=== PATIENT | female | born 1940 | race Caucasian/White ===

== ENCOUNTER 2019-04-04 05:58 | Outpatient (RCR) | payer MEDICARE, MEDICAID, SELFPAY | END 2019-04-24 00:01 | LOC: ONCRAD 05:58 | PROVIDERS: Family Provider Internal Medicine; Visit Provider Radiology Radiation Oncology | DX: Z08 Encounter for follow-up examination after completed treatment for malignant neoplasm (principal); C34.32 Malignant neoplasm of lower lobe, left bronchus or lung; I71.4 Abdominal aortic aneurysm, without rupture; I67.1 Cerebral aneurysm, nonruptured; J44.9 Chronic obstructive pulmonary disease, unspecified; I25.10 Atherosclerotic heart disease of native coronary artery without angina pectoris; F17.210 Nicotine dependence, cigarettes, uncomplicated; R91.8 Other nonspecific abnormal finding of lung field; Z79.891 Long term (current) use of opiate analgesic; Z92.3 Personal history of irradiation; Z90.2 Acquired absence of lung [part of] | CPT/HCPCS: 99213 ==

== ENCOUNTER 2019-07-05 09:10 | Outpatient (CLI) | payer MEDICARE, MEDICAID, SELFPAY ==
--- NOTE | 2019-07-05 09:27 | CT_ITS ---
WS: [id number] CT CHEST WITHOUT INTRAVENOUS CONTRAST HISTORY: LUNG CANCER TECHNIQUE: Contiguous 5 mm axial imaging performed on the thorax. Coronal and sagittal reformats are submitted. All CT scans at [facility] use at least one of these dose optimization techniq ues: automated exposure control; mA and/or kV adjustment per patient size (includes targeted exams wh ere dose is matched to clinical indication); or iterative reconstruction. CONTRAST: None DLP: 831.44 mGycm COMPARISON: 01/08/2019, 09/25/2018 and 07/21/2017, PET/CT 03/24/2019. Lungs and central airway: Marked emphysema. Postsurgical changes in the RIGHT lower lobe. There are d ystrophic calcifications in the superior segment of the RIGHT lower lobe with thickening along the ma marco antonio fissure. Increasing pleural thickening and nodularity at the surgical site. Previously described nodule adjacent to the calcification at the surgical site is no longer identified. Progression of bro nchial wall thickening and adjacent interstitial lung disease may be postradiation treatment. Mild th ickening and nodularity along the superior RIGHT major fissure. New 2 mm noncalcified nodule posterior LEFT upper lobe, image 14 of series 3. Lobulated nodule measur ing 6 mm in the lingula similar size to the prior study. Heart and pericardium: Cardiac chambers are slightly enlarged. Increased pericardial fat. Moderate ca lcification in the [place] coronary arteries. Mediastinum and harrison: No adenopathy identified. Vessels: Extensive atherosclerosis aorta with no dilatation. Enlarged pulmonary artery measuring 3.1 cm diameter. Moderate coronary artery atherosclerosis. Chest wall and lower neck: No soft tissue masses. Upper abdomen: No adrenal mass. Perinephric stranding and incompletely visualized stable nodule LEFT kidney measures 1.6 cm. Probably a cyst. Osseous structures: Osteopenia and increased thoracic kyphosis and scoliosis. No osteoblastic or oste olytic bone disease. CT/CT chest wo con [id number] IMPRESSION: 1. Increasing pleural thickening at the surgical site superior segment RIGHT l ower lobe adjacent to the dystrophic calcifications along with thickening along the superior major fissure. Previously described nodule is no longer present a t the surgical site. The changes all may be post radiation induced lung disease . PET/CT from 03/24/2019 indicates the changes may be postinflammatory or postr adiation treatment. Recommend continued close CT follow-up. 2. Chronic emphysema. 3. Stable LEFT upper lobe pulmonary nodules which were negative on PET/CT. 4. No adenopathy. 5. Extensive atherosclerosis aorta and coronary arteries. 6. Pulmonary hypertension.
== END 2019-07-05 09:11 | disposition home or self-care (01) ==
LOC: ONCMED 09:18
PROVIDERS: Family Provider Internal Medicine; PCP Internal Medicine; Visit Provider Radiology Radiation Oncology
DX: Z85.118 Personal history of other malignant neoplasm of bronchus and lung (principal); J43.9 Emphysema, unspecified; I25.10 Atherosclerotic heart disease of native coronary artery without angina pectoris; I27.20 Pulmonary hypertension, unspecified
CPT/HCPCS: 71250

== ENCOUNTER 2019-07-06 10:04 | Outpatient (CLI) | payer MEDICARE, MEDICAID, SELFPAY ==
--- NOTE | 2019-07-06 11:44 | ONCRAD EPV_ITS ---
Radiation Oncology Established Patient Visit Patient: Tala MR#: [id number] : 1940> Age: 78> Sex: Female> Dictated by: Dr. Len Kaur Date of Service: 07/06/2019 Referring Physician(s) : Lois Montoya M.D. Diagnosis: C34.32 - Malignant neoplasm of lower lobe, left bronchus or lung, Diagnosed 04/06/2017 (Active) Stage IA, T1a, N0, M0 Radiotherapy to Date: Chief Complaint / History of Present Illness: Moderate shortness of breath, unchanged. Current Medications: Allopurinol, clopidogrel Bisulfate, crestor, fenofibrate, hydroCHLOROthiazide, hydrocodone-Acetaminophen, isosorbide Dinitrate, metoprolol Succinate ER, nexIUM, tolterodine Tartrate ER. Review of Systems. Moderate dyspnea, unchanged. No headaches. No systemic symptoms. No bony pain. Vital Signs: Performed on 07/06/2019 9:49 AM BMI - 29.255 kg/m2 (high), Height - 65.00 in, Weight - 175.8 lbs, Temperature - 98.2 f, Pulse - 74, Respiration - 24, O2 Sat - 96 %, Pain - 0 and BP - 155/ 65 mm(hg)(high/). Physical Exam: General: Elderly patient, general condition consistent with her age. Alert and oriented x 3. No acute distress. HEENT: Normocephalic, atraumatic. Extraocular Movements Intact: Pupils Equal, Round, Reactive to Light and Accommodation: Sclerae anicteric. Oral cavity is clear without lesions, masses or ulcers. NECK: Supple without supraclavicular or jugular lymphadenopathy. LUNGS: Clear to auscultation bilaterally without rales, rhonchi or wheeze. MUSCULOSKELETAL: No tenderness or percussion pain over the axial skeleton, scapulae or pelvis. ABDOMEN: Soft, nontender, nondistended without masses or organomegaly EXTREMITIES: No peripheral edema is identified. Limited motor and sensory examination are grossly intact and symmetric bilaterally. NEUROLOGIC: Cranial nerves II ???XII are grossly intact. Normal sensation, strength 5/5 in all extremities, normal gait, no ataxia. Performance Status: 2 - Ambulatory/capable of all self-care, unable to perform any work activities. Up and about more than 50% of waking hours. (ECOG) Lab: None pending. Pathology: Primary, c34.32 - malignant neoplasm of lower lobe, left bronchus or lung, Diagnosed 04/06/2017 (active) stage ia, t1a, n0, m0. Imaging: CT scan of the chest on 07-05-19 disclosed moderate emphysema and post surgical changes in RLL. New 2 mm noncalcified nodule in posterior LLL. Lobulated 6 mm lobulated nodule in the lingual, similar size to prior study. Patient had PET scan in February 2019 which showed a 6 mm nodule in lingual/ left lung. Impression: Stable. To return in 4 months. She will be scheduled for follow up CT scan of chest before her visit to Radiation Oncology. Signed by: 07/06/2019 11:43:06 AM <<Signature on File>> Time spent with patient: CPT Code: CPT Code:
== END 2019-07-06 10:05 | disposition home or self-care (01) ==
LOC: ONCMED 10:08
PROVIDERS: Family Provider Internal Medicine; PCP Internal Medicine
DX: C34.32 Malignant neoplasm of lower lobe, left bronchus or lung (principal); R91.8 Other nonspecific abnormal finding of lung field; J43.9 Emphysema, unspecified; Z79.02 Long term (current) use of antithrombotics/antiplatelets
CPT/HCPCS: 99213

== ENCOUNTER 2019-11-07 10:22 | Outpatient (CLI) | payer MEDICARE, MEDICAID, SELFPAY ==
--- NOTE | 2019-11-07 10:45 | CT_ITS ---
WS: [id number] CT scan of the chest without IV contrast, additional two-dimensional coronal and sagittal reconstruct ion was performed. 11/07/2019 Clinical Data: LUNG CANCER Comparison: CT chest, 07/05/2019. DLP: 717.[address] scans at [facility] use at least one of these dose optimization techniques: automat ed exposure control; mA and/or kV adjustment per patient size (includes targeted exams where dose is matched to clinical indication); or iterative reconstruction. Findings: The posttreatment changes in the superior segment of the right lower lobe remain the same with scarri ng, pleural thickening and embedded calcifications. No new masses are seen. There is no change in the lingular nodule of 0.6 cm seen best on axial image 34 of 61. The previously noted left upper lobe no dule is not present. The heart size is normal with no pericardial effusion. The pulmonary artery stil l measures 3.1 cm. There is calcification of the wall of the thoracic aorta. There is coronary arter y calcification and calcification in the mitral valve. There is no axillary or significant mediastina l adenopathy. The trachea bifurcates normally into the bronchi. Thyroid gland is not remarkable. The upper abdomen shows no change from before. The bones of the thorax demonstrate no metastatic lesi ons. CT/CT chest wo con [id number] Impression: 1. No change in scarring and pleural thickening in the superior segment of the right lower lobe. 2. No change in slight pulmonary artery enlargement, lingular nodule, and ather osclerotic calcifications.
[2019-11-07 11:13] LABS: Blood Urea Nitrogen 18 mg/dL (8-23)
== END 2019-11-07 10:23 | disposition home or self-care (01) ==
PROVIDERS: Radiology Radiation Oncology; Family Provider Internal Medicine; PCP Internal Medicine; Visit Provider Radiology Radiation Oncology
DX: C34.90 Malignant neoplasm of unspecified part of unspecified bronchus or lung (principal)
CPT/HCPCS: 71250; 82565; 84520

== ENCOUNTER 2019-11-12 10:34 | Outpatient (CLI) | payer MEDICARE, MEDICAID, SELFPAY ==
--- NOTE | 2019-11-12 12:25 | ONCRAD EPV_ITS ---
Radiation Oncology Established Patient Visit Patient: Tala MR#: [id number] : 1940 Age: 79 Sex: Female Dictated by: Dr. Altaf Daugherty Date of Service: 11/12/2019 Referring Physician(s) : Lois Montoya Diagnosis: C34.32 - Malignant neoplasm of lower lobe, left bronchus or lung, Diagnosed 04/06/2017 (Active) Stage IA, T1a, N0, M0 Radiotherapy to Date: Course: C1 Treatment Site: SBRT LT LUNG [id number], Ref. ID: [id number], Energy: 6X, Dose/Fx (cGy): 1,000, #Fx: 5 / 5, Dose Correction (cGy): 0, Total Dose (cGy): 5,000, Start Date: 05/30/2017, End Date: 06/08/2017, Elapsed Days: 9 Treatment Site: RT Lung SBRT, Ref. ID: [id number], Energy: 6X, Dose/Fx (cGy): 1,000, #Fx: 5 / 5, Dose Correction (cGy): 0, Total Dose (cGy): 5,000, Start Date: 11/13/2018, End Date: 11/22/2018, Elapsed Days: 9 Chief Complaint / History of Present Illness: The patient is a 79-year-old female with several non-small cell lung carcinomas. Per medical records review, she underwent a wedge resection in 09/2015 which was positive for adenocarcinoma, and SBRT to the left and right lung in 05/2017 and 10/2018, respectively. In follow-up today, the patient reports no progressive shortness of breath, and no chest wall pain. She reports occasional blood flecked sputum and she continues to smoke 1 pack/day. Smoking cessation counseling was given today, yet the patient declined. She reports that it is the one thing that she enjoys. Most recent CT of the chest (11/12/2019) revealed no evidence of disease recurrence or metastasis. Current Medications: Allopurinol, clopidogrel Bisulfate, crestor, fenofibrate, hydroCHLOROthiazide, hydrocodone-Acetaminophen, isosorbide Dinitrate, metoprolol Succinate ER, nexIUM, tolterodine Tartrate ER. Allergies: Ultram. Current Complaints / Review of Systems: Constitutional - Complains of lack of appetite. Complains of moderate fatigue. Denies fever, night sweats and change in weight. Eyes - Complains of blurred vision occasionally with reading something. Denies double vision. ENMT - Complains of problems with hearing in both ears. Complains of altered taste. Denies dysphagia, ear pain, mouth dryness, stomatitis and tinnitus. Integumentary - Denies rash. Breasts - Denies pain. Cardiovascular - Complains of chest pain occasionally and edema in both feet and ankle. Respiratory - Complains of a moderate cough. Complains of dyspnea associated with rest or normal activity. Complains of a scant amount of hemoptysis. Complains of wheezing. Gastrointestinal - Complains of heartburn / dyspepsia occasionally. Denies constipation, diarrhea, nausea and vomiting. Genitourinary (F) - Complains of nocturia gets up about 1 time per night. Denies dysuria, frequency and urgency. Musculoskeletal - Complains of joint pain in the back. Complains of generalized muscle weakness. Denies bone pain. Neurologic - Complains of intermittent dizziness. Denies headaches. Endocrine - Denies diabetes and thyroid disease. Hematologic/Lymphatic - Denies tender or enlarged lymph nodes.. Vital Signs: Performed on 11/12/2019 11:37 AM BMI - 28.822 kg/m2 (high), Height - 65.00 in, Weight - 173.2 lbs, Temperature - 98.0 f, Pulse - 70, Respiration - 24, O2 Sat - 95 % (low), Pain - 7 and BP - 137/ 76 mm(hg). Physical Exam: General: Alert and oriented x 3. No acute distress. HEENT: Normocephalic, atraumatic. Extraocular Movements Intact: Pupils Equal, Round, Reactive to Light and Accommodation: Sclerae anicteric. Oral cavity is clear without lesions, masses or ulcers. NECK: Trachea is midline. LUNGS: Clear to auscultation bilaterally without rales, rhonchi or wheeze. HEART: Regular rate and rhythm, normal S1 and S2 without murmur, gallop or rub. MUSCULOSKELETAL: No tenderness or percussion pain over the axial skeleton, scapulae or pelvis. EXTREMITIES: No peripheral edema is identified. Limited motor and sensory examination are grossly intact and symmetric bilaterally. NEUROLOGIC: Cranial nerves II ???XII are grossly intact. Performance Status: 2 - Ambulatory/capable of all self-care, unable to perform any work activities. Up and about more than 50% of waking hours. (ECOG) Lab: None pending. Pathology: Primary, c34.32 - malignant neoplasm of lower lobe, left bronchus or lung, Diagnosed 04/06/2017 (active) stage ia, t1a, n0, m0. Imaging: See HPI Impression: The patient is a 79-year-old female with several non-small cell lung carcinomas. Per medical records review, she underwent a wedge resection in 09/2015 which was positive for adenocarcinoma, and SBRT to the left and right lung in 05/2017 and 10/2018, respectively to a total dose of 50 Gy in 5 fractions. In follow-up today, she has no clinical or radiographic concern for disease recurrence. I plan to follow-up in 6 months with a repeat CT of the chest. Signed by: 11/12/2019 12:22:48 PM <<Signature on File>> CPT Code: CPT Code:
== END 2019-11-12 10:35 | disposition home or self-care (01) ==
LOC: ONCMED 10:45
PROVIDERS: PCP Internal Medicine; Visit Provider Radiology Radiation Oncology
DX: Z08 Encounter for follow-up examination after completed treatment for malignant neoplasm (principal); Z85.118 Personal history of other malignant neoplasm of bronchus and lung; Z90.2 Acquired absence of lung [part of]; Z92.3 Personal history of irradiation
CPT/HCPCS: 99213; G0463

== ENCOUNTER → 2020-01-22 14:08 | Outpatient (BNVA) | payer MEDICARE, MEDICAID, SELFPAY | PROVIDERS: PCP Internal Medicine; Visit Provider Nurse Practitioner | DX: N18.9 Chronic kidney disease, unspecified (principal); I25.10 Atherosclerotic heart disease of native coronary artery without angina pectoris; J44.9 Chronic obstructive pulmonary disease, unspecified | CPT/HCPCS: 80053; 85025 ==

== ENCOUNTER → 2020-02-14 09:35 | Outpatient (BNVA) | payer MEDICARE, MEDICAID, SELFPAY | PROVIDERS: PCP Internal Medicine; Visit Provider Nurse Practitioner | DX: N18.9 Chronic kidney disease, unspecified (principal); J44.9 Chronic obstructive pulmonary disease, unspecified | CPT/HCPCS: 80048 ==

== ENCOUNTER 2020-02-22 09:11 | Outpatient (CLI) | payer MEDICARE, MEDICAID, SELFPAY ==
--- NOTE | 2020-02-22 11:30 | CT_ITS ---
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 CT scan of the chest abdomen and pelvis is performed in the axial plane with sagittal and coronal ref ormatted images. CT scan of the chest. Comparison 11/07/2019. A 6 mm noncalcified nodule again noted in the lingula shows no change. There is scarring in the calci fication with associated pleural thickening in the superior segment of the right lower lobe unchanged . Moderately advanced emphysematous changes are noted. There are no new nodules or masses. The lungs are completely expanded. The airway is patent. The thoracic aorta is normal in caliber. Triple vessel coronary artery calcifications. No mediastinal or hilar lymphadenopathy. Prominent thyroid lobes. No destructive bone lesions are chest wall defects. CT/CT chest abd pel wo con IMPRESSION: 1. Stable-appearing 6 mm nodule in the lingula. No new nodules or masses noted in the chest. No lymphadenopathy. 2. Pulmonary parenchymal scarring and pleural scarring noted in the region of t he superior segment of the right lower lobe stable in appearance. 3. Additional nonacute findings as detailed above. CT scan of the abdomen and pelvis. The liver, stomach, spleen and pancreas appear normal. The gallbladder is not i dentified and is probably surgically absent. The abdominal aorta is normal in c aliber. There are 2 cysts in the left kidney both measuring the range of 1.5 cm in greatest diameter each. Normal right kidney. Unremarkable adrenal glands. N o free air. No lymphadenopathy. Small bowel loops are not dilated. No significa nt large bowel abnormality is demonstrated. Intact urinary bladder. No lymphade nopathy or free air. 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 No destructive bone lesions are seen. IMPRESSION: 1. No mass, lymphadenopathy or acute finding. 2. Additional minor findings as above.
== END 2020-02-22 09:12 | disposition home or self-care (01) ==
LOC: RADWPI 09:16
PROVIDERS: PCP Nurse Practitioner; Visit Provider Nurse Practitioner
DX: R10.9 Unspecified abdominal pain (principal); F17.200 Nicotine dependence, unspecified, uncomplicated; R91.1 Solitary pulmonary nodule
CPT/HCPCS: 71250; 74176

== ENCOUNTER 2020-06-18 06:00 | Outpatient (RCR) | payer MEDICARE, MEDICAID, SELFPAY | END 2020-06-22 23:59 | disposition home or self-care (01) | LOC: APT 06:00 | PROVIDERS: PCP Nurse Practitioner; Referring Provider Nurse Practitioner; Visit Provider Nurse Practitioner | DX: Z74.09 Other reduced mobility (principal) | CPT/HCPCS: 97110; 97163 ==

== ENCOUNTER 2020-06-23 06:00 | Outpatient (RCR) | payer MEDICARE, MEDICAID, SELFPAY | END 2020-07-23 23:59 | disposition home or self-care (01) | LOC: APT 06:00 | PROVIDERS: PCP Nurse Practitioner; Referring Provider Nurse Practitioner; Visit Provider Nurse Practitioner | DX: Z74.09 Other reduced mobility (principal) | CPT/HCPCS: 97110; 97530 ==

== ENCOUNTER 2020-07-24 06:00 | Outpatient (RCR) | payer MEDICARE, MEDICAID, SELFPAY | END 2020-08-22 23:59 | disposition home or self-care (01) | LOC: APT 06:00 | PROVIDERS: PCP Nurse Practitioner; Referring Provider Nurse Practitioner; Visit Provider Nurse Practitioner | DX: Z74.09 Other reduced mobility (principal) | CPT/HCPCS: 97110 ==

== ENCOUNTER → 2020-08-28 15:11 | Outpatient (BNVA) | payer MEDICARE, MEDICAID, SELFPAY | PROVIDERS: PCP Nurse Practitioner; Visit Provider Nurse Practitioner | DX: E55.9 Vitamin D deficiency, unspecified (principal); I10 Essential (primary) hypertension; I25.10 Atherosclerotic heart disease of native coronary artery without angina pectoris; K58.1 Irritable bowel syndrome with constipation; K21.9 Gastro-esophageal reflux disease without esophagitis; R35.0 Frequency of micturition; J44.9 Chronic obstructive pulmonary disease, unspecified | CPT/HCPCS: 81000 ==

== ENCOUNTER 2020-10-21 08:20 | Outpatient (CLI) | payer MEDICARE, MEDICAID, SELFPAY ==
--- NOTE | 2020-10-21 08:41 | CT_ITS ---
WS: [id number] CT CHEST WITHOUT INTRAVENOUS CONTRAST HISTORY: MALIGNANT NEOPLASM OF UNSPECIFIED PART OF LUNG/BRONCHUS TECHNIQUE: Contiguous 5 mm axial imaging performed on the thorax. Coronal and sagittal reformats are submitted. All CT scans at [facility] use at least one of these dose optimization techniq ues: automated exposure control; mA and/or kV adjustment per patient size (includes targeted exams wh ere dose is matched to clinical indication); or iterative reconstruction. CONTRAST: None DLP: 614.27 mGycm COMPARISON: 02/22/2020, 01/08/2019 Lungs and central airway: Slight volume loss and postoperative changes in the RIGHT upper lobe. Sligh t increase in size of the lingular nodule measures 8 mm. There is an additional 2 mm nodule in the an terior LEFT upper lobe which is stable over intermediate manager. RIGHT apical pleural thickening and scarring w ith volume loss superimposed on a background of emphysema. There is been a slight increase in the ian unt of pleural thickening along the superior RIGHT major fissure since 01/08/2019. There is also incre asing atelectasis extending into the superior segment of the RIGHT lower lobe. Pleura: Pleural thickening has slightly progressed in the RIGHT thorax. Heart and pericardium: Moderate enlargement the heart. Increased pericardial fat. Moderate coronary a rtery calcifications. Mediastinum and harrison: No mediastinum or hilar adenopathy. Vessels: Moderate to severe atherosclerosis thoracic aorta. No aneurysm. Pulmonary artery size is enl arged. Chest wall and lower neck: Substernal thyroid with nodules in the substernal LEFT thyroid. No interva l change. Upper abdomen: Mild bilateral perinephric stranding. Partially visualized exophytic low-attenuation m ass from the LEFT kidney. No adrenal mass. Visualized liver is negative. Osseous structures: Osteopenia. No osteoblastic or osteolytic disease. CT/CT chest wo con [id number] IMPRESSION: 1. Postsurgical changes RIGHT apex. 2. There is been a slight increase in amount pleural thickening along the supe rior RIGHT major fissure and increasing partial atelectasis superior segment RI GHT lower lobe since the prior study. Due to these very subtle changes suggest short-term follow-up chest CT in 3 months. 3. Chronic emphysema. 4. Lingular nodule has slightly increased in size and appears more rounded and solid. Progression of metastatic disease is not excluded.
== END 2020-10-21 08:21 | disposition home or self-care (01) ==
LOC: RADWPI 08:25
PROVIDERS: PCP Nurse Practitioner; Visit Provider Internal Medicine
DX: C34.90 Malignant neoplasm of unspecified part of unspecified bronchus or lung (principal); J43.9 Emphysema, unspecified
CPT/HCPCS: 71250

== ENCOUNTER 2021-02-05 10:16 | Outpatient (CLI) | payer MEDICARE, MEDICAID, SELFPAY ==
--- NOTE | 2021-02-05 10:22 | CT_ITS ---
WS: [id number] CT CHEST TECHNIQUE: Noncontrast CT of the chest with coronal and sagittal reformatted images. CLINICAL INFORMATION: RECURRENT NON SMALL CELL LUNG CANCER COMPARISON: CT October 01, 2020. DLP: 744.[address] scans at [facility] use at least one of these dose optimization techniques: automated e xposure control; mA and/or kV adjustment per patient size (includes targeted exams where dose is matc hed to clinical indication); or iterative reconstruction. FINDINGS: Postoperative changes right upper lobe posteriorly. Noncalcified lingula nodule stable since October 21, 2020 measuring approximately 8 mm. Subsegmental atelectasis in the lung bases. Again seen is pleural thickening along the right superior major fissure with atelectasis and calcification. This is stable compared to previous. No mediastinal or hilar lymphadenopathy. Cardiomegaly. Moderate thoracic aortic calcification. Coronary calcification. Adrenal glands are norm al. Small esophageal hiatal hernia. Prominent azygos vein stable from previous. Mild thoracic kyphosi s. Stable left thyroid nodule measuring [address]/CT chest wo con [id number] IMPRESSION: 1. Stable 8 mm pulmonary nodule in the lingula. 2. Postoperative changes with pleural thickening along the right major fissure in the super segment right lower lobe with associated calcifications. No signi ficant interval changes. Recommend continued surveillance with 6 month follow-u p. 3. Moderate chronic emphysematous changes. 4. No mediastinal or hilar lymphadenopathy. 5. No other significant changes compared to previous.
== END 2021-02-05 10:17 | disposition home or self-care (01) ==
PROVIDERS: Visit Provider Internal Medicine Hematology & Oncology
DX: C34.90 Malignant neoplasm of unspecified part of unspecified bronchus or lung (principal); R01.1 Cardiac murmur, unspecified
CPT/HCPCS: 71250

== ENCOUNTER → 2021-07-15 10:02 | Outpatient (BNVA) | payer MEDICARE, MEDICAID, SELFPAY | PROVIDERS: Visit Provider Internal Medicine | DX: N18.9 Chronic kidney disease, unspecified (principal) | CPT/HCPCS: 84100 ==

== ENCOUNTER 2021-08-18 11:18 | Outpatient (CLI) | payer MEDICARE, MEDICAID, SELFPAY ==
--- NOTE | 2021-08-18 11:27 | CT_ITS ---
WS: [id number] CT CHEST WITHOUT INTRAVENOUS CONTRAST HISTORY: LUNG CANCER TECHNIQUE: Contiguous 5 mm axial imaging performed on the thorax. Coronal and sagittal reformats are submitted. All CT scans at [facility] [place] use at least one of these dose optimization techniques: automated exposure control; mA and/or kV adjustment per patient size (includes targeted exams where dose is matched to clinical indication); or iterative reconstruction. CONTRAST: None DLP: 596.11 mGy.cm COMPARISON: 02/05/2021, 10/22/2019 and 02/22/2020 Lungs and central airway: Chronic emphysema. Postsurgical changes are noted superior segment of the p osterior RIGHT lower lobe. There is pleural thickening extending along the superior fissure along wit h dystrophic coarse calcifications and chronic areas of atelectasis. No significant increase in amoun t of soft tissue density or pleural thickening. Recently described 8 mm noncalcified nodule at the li ngula has slightly decreased in size. Nodule is now slightly spiculated but measures only 5 mm and ma y be resolving. Pleura: No pleural effusion. Heart and pericardium: Normal size heart. Increased amount of pericardial fat. Moderate [place] artery calcifications. Mediastinum and harrison: No mediastinum or hilar adenopathy. Vessels: Moderate atherosclerotic plaque thoracic aorta with extension into the proximal great vessel s. Dilated pulmonary artery. Chest wall and lower neck: 13 mm LEFT thyroid nodule in the inferior pole. Upper abdomen: Mild nodularity LEFT adrenal gland is stable. Normal density throughout the liver on t his unenhanced enhanced examination. Osseous structures: No destructive process. CT/CT chest wo con [id number] IMPRESSION: 1. Slight decrease in size of the previous the described 8 mm lingular nodule. The nodule now measures 5 mm and is less consolidated. Recommend continued ser ial evaluation. 2. Stable postoperative pleural thickening, chronic atelectasis and dystrophic calcification superior segment RIGHT lower lobe and along the RIGHT fissure. N o recurrent mass identified. 3. No adenopathy. 4. Extensive atherosclerosis aorta and coronary arteries.
== END 2021-08-18 11:19 | disposition home or self-care (01) ==
LOC: RAD 11:22
PROVIDERS: Visit Provider Internal Medicine Medical Oncology
DX: C34.32 Malignant neoplasm of lower lobe, left bronchus or lung (principal); I70.0 Atherosclerosis of aorta; I25.10 Atherosclerotic heart disease of native coronary artery without angina pectoris
CPT/HCPCS: 71250

== ENCOUNTER → 2021-10-22 16:18 | Outpatient (BNVA) | payer MEDICARE, MEDICAID, SELFPAY | PROVIDERS: Visit Provider Nurse Practitioner Family | DX: T81.49XA Infection following a procedure, other surgical site, initial encounter (principal); Z48.02 Encounter for removal of sutures; Z98.890 Other specified postprocedural states | CPT/HCPCS: 87070; 87077; 87184 ==

== ENCOUNTER → 2021-10-27 10:35 | Outpatient (BNVA) | payer MEDICARE, MEDICAID, SELFPAY | PROVIDERS: Visit Provider Nurse Practitioner | DX: M79.89 Other specified soft tissue disorders (principal) | CPT/HCPCS: 80048 ==

== ENCOUNTER 2021-11-07 00:20 | Observation (INO) | payer MEDICARE, MEDICAID, SELFPAY ==
[2021-11-07] VITALS (13 sets, daily range): BP systolic 107–137; BP diastolic 47–75; PULSE 79–111; RESP 16–22; TEMP 36.4–37.2; O2SAT 82–100; BMI 23.3
--- NOTE | 2021-11-07 00:55 | W.ED.WEAKNES ---
Documented by User: WYATT Santana 11/07/21 20:54 HPI - Weakness General: Chief complaint: Weakness Stated complaint: WEAKNESS Time Seen by Provider: 11/07/21 00:40 History of Present Illness: Patient is an 81-year-old female who comes to the ED via EMS with weakness, nausea and vomiting. Past medical history of hypertension, COPD, CKD, GERD and neoplasm of the left lower lobe of lung. Patient is not on any oxygen at home. Symptoms started approximately a week ago. She has been nauseous and has had a decreased appetite and nothing tastes good to her. She endorses having some dry heaves with occasional emesis. She states that whenever she eats or drinks anything she shortly after has diarrhea. Patient was discharged home from the hospital with some suspected MRSA and is currently taking a p.o. antibiotic. Since the nausea and vomiting started last week she has not taken her antibiotic at all for the past week. Endorses some shortness of breath but says it is her baseline. Denies any fevers, chest pain, abdominal pain or bladder symptoms. Associated symptoms: Reports nausea and vomiting; Denies chest pain, chills, dysuria, fever(s) or headache(s) Review of Systems Const: Reports: change in appetite (Decreased appetite) and fatigue (Generalized weakness); Denies: fever(s) or chills Eyes: Denies: change in vision or eye discomfort ENMT: Denies: throat pain, odynophagia, nasal discharge or nasal congestion Card: Denies: chest pain, palpitations, edema, swelling of feet/ankles, dyspnea on exertion or orthopnea Resp: Reports: dyspnea (Chronic and currently at baseline); Denies: productive cough or non-productive cough GI: Reports: nausea, vomiting and diarrhea; Denies: abdominal pain, constipation or hematochezia : Denies: flank pain, dysuria or hematuria Musc: Denies: neck pain, back pain or extremity swelling Skin/Breast: Denies: rash or new lesions Neuro: Denies: headache(s), numbness in extremities or weakness in extremities [facility] ED PFSH: Medical History (Updated 11/07/21 @ 19:25 by Jono Sevilla DO) AAA (abdominal aortic aneurysm) notated in multiple records, not commented on for CT abd/pelvis at [facility] 11/07/2021 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, T1a, N0, M0 diagnosed via CT guided biopsy s/p radiation therapy ending early 2019 gets regular lung scans following another pulmonary nodule ASCVD (arteriosclerotic cardiovascular disease) Cancer of right lung Preceded abnormality in left lung, details unknown Chronic kidney disease (CKD) COPD (chronic obstructive pulmonary disease) Esophageal dysmotility 07/14 barium swallow, dysmotility with intermittent tertiary stripping waves ([place], [place]) Modified swallow study same date normal Essential (primary) hypertension GERD (gastroesophageal reflux disease) History of intracranial aneurysm History of staph septicemia Hyperlipidemia Irritable bowel syndrome with constipation Osteoarthritis Peripheral artery disease Vertebrobasilar insufficiency Surgical History (Updated 11/07/21 @ 16:40 by Mary Laird MD) History of abdominal surgery for sepsis related to R femoral artery stent History of aorto-femoral bypass Right History of cardiac catheterization 2016: mild diffuse disease circ, calcified LAD, moderate proximal RCA disease per outside records History of carotid angioplasty 06/2021 due to stenosis of previous left carotid subclavian bypass History of cataract surgery History of esophagogastroduodenoscopy (EGD) 06/2021 esophagitis (from outside records) History of thoracotomy (~2015) right vats with wedge resection History of total abdominal hysterectomy and bilateral salpingo-oophorectomy Hx of cholecystectomy Hx of peripheral artery bypass left carotid-subclavian artery bypass S/P insertion of iliac artery stent right Status post aneurysm repair (1998) intracranial Family History (Updated 11/07/21 @ 16:03 by Mary Laird MD) Mother Cancer Sister Cancer Other Heart disease Social History (Updated 11/07/21 @ 08:42 by Mary Laird MD) Smoking and tobacco status: current every day smoker cigarettes Packs smoked per day: 1 Second hand smoke exposure: No Alcohol intake: never Substance/Drug Use: never Adopted: No Caregiver/support person: No Lives independently: Yes Household members: none Housing: House Marital status: Number of children: 2 service: No Current occupational status: retired Pets and animals: No Current gender identity: Female Physical Exam Const: COMMON NORMALS: patient oriented x3 HENMT: COMMON NORMALS: normocephalic HEAD & SCALP: normocephalic MOUTH: Normal oral and palatal mucosa present THROAT: posterior oropharynx normal and uvula midline Neck/C-Spine: COMMON NORMALS: supple GENERAL: Yes normal visual inspection Resp: COMMON NORMALS: normal respiratory effort, No retractions, No use of accessory muscles and clear to auscultation bilaterally AUSCULTATION: clear to auscultation bilaterally Cardio: COMMON NORMALS: regular rate, regular rhythm, S1 normal heart sound present, S2 normal heart sound present, No gallops present (Cardio), No clicks present (Cardio), No murmurs present (Cardio) and Peripheral pulses 2+ throughout RATE: regular rate RHYTHM: regular rhythm HEART SOUNDS: S1 normal heart sound present and S2 normal heart sound present PERIPHERAL PULSES: Peripheral pulses 2+ throughout GI: COMMON NORMALS: Normal to inspection, nondistended, normoactive bowel sounds present, Soft to palpation, non-tender and no masses PALPATION: Yes Soft to palpation : COMMON NORMALS: Yes no CVA tenderness BLADDER/KIDNEY EXAM: Yes no CVA tenderness Back/Pelvis: COMMON NORMALS: no CVA tenderness Neuro: COMMON NORMALS: patient oriented x3 and moves all extremities Course Vital Signs: Vital signs: Vital Signs Temperature 98.3 F 11/07/21 20:00 Pulse Rate 88 11/07/21 20:36 Respiratory Rate 18 11/07/21 20:00 Blood Pressure 136/75 11/07/21 20:00 Pulse Oximetry 94 11/07/21 20:36 MDM - Weakness Lab Data : 11/07/21 02:05 11/07/21 02:05 Radiology Impressions Chest X-Ray 11/07/21 00:56 IMPRESSION: Unchanged hyperinflation of lungs with upper lung zone emphysema. Unchanged bilateral upper lung zone parenchymal scarring. Unchanged right mid lung zone coarse parenchymal band with some associated calcified granulomas. No new airspace opacities. Abdomen/Pelvis CT 11/07/21 03:41 IMPRESSION: 1. Mildly distended fluid-filled loops of small bowel in the abdomen. Poor distension of the colon. Mild ascending colonic, transverse colonic and descending colonic wall prominence is seen. This may be related to poor distension. Some fluid seen in the rectum. These findings can be seen with enteritis. Recommend correlation with clinical findings. 2. Status post prior cholecystectomy with dilated extrahepatic/common bile duct. No calcified stones. 3. Left adrenal indeterminate character 0.9 x 1 cm lesion, as noted above. 4. Degenerative changes of the lumbar spine and pelvis, as noted above. 5. Severe atherosclerotic vascular calcifications. COMMENTS: 1. Consistent with the [place] [employer]'s Incidental Findings Committee white paper (J Am Jim Radiol 2017): For any incidental adrenal lesion greater than or equal to 1 cm but less than or equal to 4 cm classified in this report as benign, likely benign, or containing fat (including classification as an adenoma or myelolipoma), no follow-up imaging is recommended per consensus recommendations based on imaging criteria. Further lab evaluation could be pursued if warranted based on clinical findings. 2. Consistent with the [place] [employer]'s Incidental Findings Committee white paper (J Am Jim Radiol 2018): Any incidental renal lesion less than 1 cm or classified as too small to characterize, or any incidental cystic renal lesion characterized as simple-appearing, is likely benign. No follow-up imaging is recommended for these lesions per consensus recommendations based on imaging criteria. Laboratory Results WBC 9.1 10^3/uL (4.0-10.0) 11/07/21 02:05 RBC 2.64 10^6/uL (4.1-5.3) L 11/07/21 02:05 Hgb 8.8 g/dL (11.5-15.3) L 11/07/21 02:05 Hct 25.3 % (37.0-47.0) L 11/07/21 02:05 MCV 95.8 fl (81-99) 11/07/21 02:05 MCH 33.3 pg (28.0-34.0) 11/07/21 02:05 MCHC 34.8 g/dL (30.0-36.0) 11/07/21 02:05 RDW 13.8 % (12.1-15.1) 11/07/21 02:05 Plt Count 251 10^3/cmm (130-400) 11/07/21 02:05 MPV 10.6 fL (7.4-10.4) H 11/07/21 02:05 Neut % (Auto) 60.3 % 11/07/21 02:05 Lymph % (Auto) 12.6 % 11/07/21 02:05 Sharkey % (Auto) 8.3 % 11/07/21 02:05 Eos % (Auto) 17.6 % 11/07/21 02:05 Baso % (Auto) 0.7 % 11/07/21 02:05 Neut # (Auto) 5.51 10^3/uL (1.8-7.7) 11/07/21 02:05 Lymph # (Auto) 1.2 10^3/uL (0.8-4.8) 11/07/21 02:05 Sharkey # (Auto) 0.8 10^3/uL (0.2-0.9) 11/07/21 02:05 Eos # (Auto) 1.6 10^3/uL (0.0-0.8) H 11/07/21 02:05 Baso # (Auto) 0.1 10^3/uL (0.0-0.1) 11/07/21 02:05 Nucleated RBC % (auto) 0 % 11/07/21 02:05 Nucleated RBCs # 0.0 /100WBC 11/07/21 02:05 Sodium 144 mmol/L (136-145) 11/07/21 02:05 Potassium 2.9 mmol/L (3.5-5.1) L 11/07/21 02:05 Chloride 111 mmol/L (98-107) H 11/07/21 02:05 Carbon Dioxide 19 mmol/L (22-29) L 11/07/21 02:05 Anion Gap 16.9 (5-19) 11/07/21 02:05 BUN 21 mg/dL (8-23) 11/07/21 02:05 Creatinine 2.8 mg/dL (0.5-0.9) H 11/07/21 02:05 GFR Calculation Not Reportable 11/07/21 02:05 Glucose 77 mg/dL (65-115) 11/07/21 02:05 Calculated Osmolality 300 mOsm/kg (285-295) H 11/07/21 02:05 Calcium 6.4 mg/dL (8.5-10.5) L 11/07/21 02:05 Total Bilirubin 0.4 mg/dL (0.15-1.2) 11/07/21 02:05 AST 24 U/L (0-32) 11/07/21 02:05 ALT 15 U/L (0-33) 11/07/21 02:05 Alkaline Phosphatase 145 IU/L (35-105) H 11/07/21 02:05 Troponin T Baseline 58 ng/L (0-10) H 11/07/21 02:05 NT-Pro-B Natriuret Pep 3930 pg/mL (0-450) H 11/07/21 02:05 Total Protein 6.3 g/dL (6.6-8.7) L 11/07/21 02:05 Albumin 2.0 g/dL (3.5-5.2) L 11/07/21 02:05 Globulin 4.3 g/dL (1.3-4.6) 11/07/21 02:05 Lipase 16 U/L (13-60) 11/07/21 02:05 Urine Color Yellow (Yellow) 11/07/21 01:41 Urine Appearance Clear (CLEAR) 11/07/21 01:41 Urine pH 5 (5-7) 11/07/21 01:41 Ur Specific [place] 1.020 (1.005-1.030) 11/07/21 01:41 Urine Protein Neg (Negative) 11/07/21 01:41 Urine Glucose (UA) Norm (Normal) 11/07/21 01:41 Urine Ketones Negative (Negative) 11/07/21 01:41 Urine Blood Neg (Negative) 11/07/21 01:41 Urine Nitrate Negative (Negative) 11/07/21 01:41 Urine Bilirubin 1+ (Negative) H 11/07/21 01:41 Urine Urobilinogen 1 mg/dL (Negative) H 11/07/21 01:41 Ur Leukocyte Esterase Negative (Negative) 11/07/21 01:41 Discharge Plan Discharge Patient Disposition: Admitted As Inpatient Admit Provider: Ara Jc Clinical Impression: Acute dehydration, Acute kidney injury, Acute hypokalemia Condition: Stable Coding Level of Care Code ED Dust Collector Attendant for Chg Fwd Exam Comprehensive Documented by User: Jono Sevilla DO 11/07/21 19:25 HPI - Weakness General: Chief complaint: Weakness Stated complaint: WEAKNESS Time Seen by Provider: 11/07/21 00:40 PFSH ED PFSH: Medical History (Updated 11/07/21 @ 19:25 by Jono Sevilla DO) AAA (abdominal aortic aneurysm) notated in multiple records, not commented on for CT abd/pelvis at [facility] 11/07/2021 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, T1a, N0, M0 diagnosed via CT guided biopsy s/p radiation therapy ending early 2019 gets regular lung scans following another pulmonary nodule ASCVD (arteriosclerotic cardiovascular disease) Cancer of right lung Preceded abnormality in left lung, details unknown Chronic kidney disease (CKD) COPD (chronic obstructive pulmonary disease) Esophageal dysmotility 07/14 barium swallow, dysmotility with intermittent tertiary stripping waves ([place], [place]) Modified swallow study same date normal Essential (primary) hypertension GERD (gastroesophageal reflux disease) History of intracranial aneurysm History of staph septicemia Hyperlipidemia Irritable bowel syndrome with constipation Osteoarthritis Peripheral artery disease Vertebrobasilar insufficiency Surgical History (Updated 11/07/21 @ 16:40 by Mary Laird MD) History of abdominal surgery for sepsis related to R femoral artery stent History of aorto-femoral bypass Right History of cardiac catheterization 2016: mild diffuse disease circ, calcified LAD, moderate proximal RCA disease per outside records History of carotid angioplasty 06/2021 due to stenosis of previous left carotid subclavian bypass History of cataract surgery History of esophagogastroduodenoscopy (EGD) 06/2021 esophagitis (from outside records) History of thoracotomy (~2015) right vats with wedge resection History of total abdominal hysterectomy and bilateral salpingo-oophorectomy Hx of cholecystectomy Hx of peripheral artery bypass left carotid-subclavian artery bypass S/P insertion of iliac artery stent right Status post aneurysm repair (1998) intracranial Family History (Updated 11/07/21 @ 16:03 by Mary Laird MD) Mother Cancer Sister Cancer Other Heart disease Social History (Updated 11/07/21 @ 08:42 by Mary Laird MD) Smoking and tobacco status: current every day smoker cigarettes Packs smoked per day: 1 Second hand smoke exposure: No Alcohol intake: never Substance/Drug Use: never Adopted: No Caregiver/support person: No Lives independently: Yes Household members: none Housing: House Marital status: Number of children: 2 service: No Current occupational status: retired Pets and animals: No Current gender identity: Female Course Vital Signs: Vital signs: Vital Signs Temperature 98.3 F 11/07/21 20:00 Pulse Rate 88 11/07/21 20:36 Respiratory Rate 18 11/07/21 20:00 Blood Pressure 136/75 11/07/21 20:00 Pulse Oximetry 94 11/07/21 20:36 MDM - Weakness Medical Decision Making This patient was originally seen by Mr. Hossein PA-C.? I agree with his history, evaluation, and treatment. I have evaluated the patient as well. This is a frail 81-year-old female presenting with multiple episodes of vomiting. She has been unable to hold down her medication. She is very weak generally. Her creatinine is up to 2.8. Her hemoglobin is 8.8. Her potassium is down to 2.9. She has refused taking potassium both orally and IV currently. CT shows distended fluid-filled loops of small bowel in the abdomen and colonic wall prominence indicative of enteritis. I am afraid she will not do well at home. She appears dehydrated. She will be admitted for symptomatic treatment and fluid resuscitation. Lab Data : 11/07/21 02:05 11/07/21 02:05 Radiology Impressions Chest X-Ray 11/07/21 00:56 IMPRESSION: Unchanged hyperinflation of lungs with upper lung zone emphysema. Unchanged bilateral upper lung zone parenchymal scarring. Unchanged right mid lung zone coarse parenchymal band with some associated calcified granulomas. No new airspace opacities. Abdomen/Pelvis CT 11/07/21 03:41
--- NOTE | 2021-11-07 00:56 | XRR_ITS ---
PROCEDURE INFORMATION: Exam: XR Chest Exam date and time: 11/07/2021 1:09 AM Age: 81 years old Clinical indication: Other: Weakness TECHNIQUE: Imaging protocol: Radiologic exam of the chest. Views: 1 view. COMPARISON: CT chest [facility] [id number] 08/18/2021 11:49 AM FINDINGS: Lungs: There is unchanged hyperinflation of lungs with upper lung zone emphysema. Unchanged bilateral upper lung zone parenchymal scarring is seen. Unchanged right mid lung zone coarse parenchymal band is seen with some associated calcified granulomas. There are no new airspace opacities. Pleural spaces: There are no pleural effusions or pneumothorax. Heart/Mediastinum: The heart size is normal. There is a mildly tortuous thoracic aorta. The trachea is in the midline. Bones/joints: Unchanged mild dextroconvex scoliosis of the midthoracic spine is seen with small degenerative osteophytes. There is generalized osteopenia. XR/XR chest 1V portable [id number] IMPRESSION: Unchanged hyperinflation of lungs with upper lung zone emphysema. Unchanged bilateral upper lung zone parenchymal scarring. Unchanged right mid lung zone coarse parenchymal band with some associated calcified granulomas. No new airspace opacities.
--- NOTE | 2021-11-07 00:56 | ECG_ITS ---
[facility] Test Date: 2021-11-07 Pat Name: Rosanne Jacob Department: Room: 251 Gender: Female Bisque Placer: : 1940 Requested By: Masood Catalan Order Number: [id number] Christine MD: Cj Tran M.D. Measurements Intervals [place] Rate: 92 P: [place]: QRS: 72 QRSD: 85 T: 11 QT: 360 QTc: 446 Interpretive Statements ATRIAL FIBRILLATION MODERATE T-WAVE ABNORMALITY, CONSIDER INFERIOR ISCHEMIA [-0.1+ mV T WAVE IN II/aVF] Compared to ECG 11/07/2021 03:20:47 No significant changes Electronically Signed On 11-09-2021 17:54:31 CDT by Cj Tran M.D. [email or web address] [email or web address] health greene memorial.[employer]in[employer]/store/[id number] f
[2021-11-07 01:55] LABS: Add Urine Microscopic? NO; Charge for UA Resulting for Rev
[2021-11-07 02:02] LABS: Bilirubin Urine 1+ (Negative); Blood Urine Neg (Negative); Glucose Urine UA Norm (Normal); Ketones Urine Negative (Negative); Leukocyte Esterase Urine Negative (Negative); Nitrate Urine Negative (Negative); Protein Urine Neg (Negative); Urine Appearance Clear (CLEAR); Urine Color Yellow (Yellow); Urobilinogen Urine 1 mg/dL (Negative); pH Urine 5 (5-7)
[2021-11-07] MEDS: ondansetron 2 mg/ML SDV 2 mL 4 MG IVP (02:21)
[2021-11-07 02:38] LABS: Basophils # 0.1 10^3/uL (0.0-0.1); Basophils % 0.7 %; Eosinophils # 1.6 10^3/uL (0.0-0.8); Eosinophils % 17.6 %; Hematocrit 25.3 % (37.0-47.0); Hemoglobin 8.8 g/dL (11.5-15.3); Lymphocytes # 1.2 10^3/uL (0.8-4.8); Lymphocytes % 12.6 %; Mean Corpuscular HGB Conc 34.8 g/dL (30.0-36.0); Mean Corpuscular Hemoglobin 33.3 pg (28.0-34.0); Mean Corpuscular Volume 95.8 fl (81-99); Mean Platelet Volume 10.6 fL (7.4-10.4); Monocytes # 0.8 10^3/uL (0.2-0.9); Monocytes % 8.3 %; Neutrophils # 5.51 10^3/uL (1.8-7.7); Neutrophils % 60.3 %; Nucleated Red Blood Cells % 0 %; Platelet Count 251 10^3/cmm (130-400); Red Blood Count 2.64 10^6/uL (4.1-5.3); Red Cell Distribution Width 13.8 % (12.1-15.1); White Blood Count 9.1 10^3/uL (4.0-10.0)
--- NOTE | 2021-11-07 02:56 | ECG_ITS ---
[facility] Test Date: 2021-11-07 Pat Name: Rosanne Jacob Department: Room: Gender: Female Head Counselor: : 1940 Requested By: Masood Catalan Order Number: [id number] Nanci MD: Cj Tran M.D. Measurements Intervals [place] Rate: 96 P: [place]: QRS: 83 QRSD: 84 T: 265 QT: 372 QTc: 471 Interpretive Statements ATRIAL FIBRILLATION ST DEVIATION AND MODERATE T-WAVE ABNORMALITY, CONSIDER LATERAL ISCHEMIA [-0.1+ mV T WAVE IN I/aVL/V5/V6] ST DEVIATION AND MODERATE T-WAVE ABNORMALITY, CONSIDER INFERIOR ISCHEMIA [-0.1+ mV T WAVE IN II/aVF] Compared to ECG 11/07/2021 00:55:46 No significant changes Electronically Signed On 11-09-2021 18:17:48 CDT by Cj Tran M.D. [email or web address] [email or web address] hospital.[email or web address]/[id number]
[2021-11-07 03:01] LABS: Troponin(5th) Baseline 58 ng/L (0-10)
[2021-11-07 03:09] LABS: Alanine Aminotransferase 15 U/L (0-33); Alkaline Phosphatase 145 IU/L (35-105); Anion Gap 16.9 (5-19); Aspartate Amino Transferase 24 U/L (0-32); Blood Urea Nitrogen 21 mg/dL (8-23); Calcium 6.4 mg/dL (8.5-10.5); Carbon Dioxide 19 mmol/L (22-29); Chloride 111 mmol/L (98-107); Globulin 4.3 g/dL (1.3-4.6); Glucose 77 mg/dL (65-115); Lipase 16 U/L (13-60); NT Pro B Type Natriuretic Pept 3930 pg/mL (0-450); Osmolality Calculated 300 mOsm/kg (285-295); Sodium 144 mmol/L (136-145); Total Bilirubin 0.4 mg/dL (0.15-1.2); Total Protein 6.3 g/dL (6.6-8.7)
[2021-11-07] MEDS: metoclopramide 5 mg/mL SDV 2 mL 10 MG IVP ×3 (03:17→14:13)
[2021-11-07] MEDS: morphine 4 mg/mL SDV 1 mL IVP (03:17)
[2021-11-07 03:27] LABS: Potassium 2.9 mmol/L (3.5-5.1)
--- NOTE | 2021-11-07 03:41 | CTR_ITS ---
PROCEDURE INFORMATION: Exam: CT Abdomen And Pelvis Without Contrast Exam date and time: 11/07/2021 4:51 AM Age: 81 years old Clinical indication: Abdominal pain; Generalized; Additional info: Abdominal pain, vomiting TECHNIQUE: Imaging protocol: Computed tomography of the abdomen and pelvis without contrast. Radiation optimization: All CT scans at this facility use at least one of these dose optimization techniques: automated exposure control; mA and/or kV adjustment per patient size (includes targeted exams where dose is matched to clinical indication); or iterative reconstruction. COMPARISON: [place] [id number] 02/22/2020 10:13 AM RADIATION DOSE METRICS: Total DLP (mGy-cm): 919.63 FINDINGS: Lungs: The visualized portions of the lung bases show minimal linear scarring with some parenchymal bands. Moderate atherosclerotic vascular calcifications of the lower descending thoracic aorta are seen. Liver: The non-contrast enhanced liver appears unremarkable. Gallbladder and bile ducts: Status post prior cholecystectomy. Dilated extrahepatic/common bile duct with maximal diameter of 12 mm. Some distal tapering. No calcified stones. Pancreas: Some atrophic changes of the pancreas are seen. No ductal dilatation. Assessment limited on noncontrast imaging. Spleen: The non-contrast enhanced spleen appears unremarkable. No splenomegaly. Adrenal glands: The right adrenal gland appears normal. Left adrenal body 0.9 x 1 cm lesion is seen with Hounsfield units of 28.2 HU. This is not characteristic of an adrenal adenoma. MRI may be performed for further assessment. Kidneys and ureters: Left kidney mid zone exophytic 1.6 x 1.6 cm simple cyst is seen. Left kidney lower pole exophytic simple 1.3 x 1.3 cm cyst is seen. Right kidney mid zone simple 0.8 x 0.8 cm cyst is seen. No hydronephrosis, ureterectasis or ureteral calculi. Stomach and bowel: The non-contrast opacified stomach is not well distended with relative moderate gastric fold prominence. Assessment is limited. The noncontrast opacified loops of small bowel show some mildly distended fluid-filled loops of small bowel in the abdomen. The noncontrast opacified loops of colon show poor distension of the colon. Mild ascending colonic, transverse colonic and descending colonic wall prominence is seen. This may be related to poor distension. Some fluid is seen in the rectum. These findings can be seen with enteritis. Appendix: No appendix is specifically identified. There is no evidence of fluid collections or inflammatory stranding in the right lower quadrant. Intraperitoneal space: No free air. No significant fluid collection. Some phleboliths are seen in the pelvis. Vasculature: Severe atherosclerotic vascular calcifications of the abdominal aorta and iliac vessels are seen with calcifications at the origins of the mesenteric and renal arteries. Lymph nodes: No enlarged lymph nodes. Urinary bladder: Unremarkable as visualized. Reproductive: Status post prior hysterectomy. Bones/joints: There is mild to moderate dextroconvex scoliosis of the lumbar spine with apex at the L3 level. There is 1 mm retrolisthesis of L2 on L3 and L3 on L4. There is generalized osteopenia. Severe degenerative disc disease changes are noted at the L1-L2 through L3-L4 levels. Severe degenerative facet disease changes are seen throughout the lumbar spine. There are multiple levels of foraminal stenosis with severe stenosis seen at the at the left L3-L4 level, left L4-L5 level and bilateral L5-S1 levels. Moderate bilateral hip degenerative changes are seen. Severe symphysis pubis and sacroiliac joint degenerative changes are seen. Soft tissues: Unremarkable. CT/CT abdomen pelvis wo con [id number] IMPRESSION: 1. Mildly distended fluid-filled loops of small bowel in the abdomen. Poor distension of the colon. Mild ascending colonic, transverse colonic and descending colonic wall prominence is seen. This may be related to poor distension. Some fluid seen in the rectum. These findings can be seen with enteritis. Recommend correlation with clinical findings. 2. Status post prior cholecystectomy with dilated extrahepatic/common bile duct. No calcified stones. 3. Left adrenal indeterminate character 0.9 x 1 cm lesion, as noted above. 4. Degenerative changes of the lumbar spine and pelvis, as noted above. 5. Severe atherosclerotic vascular calcifications. COMMENTS: 1. Consistent with the [place] [employer]'s Incidental Findings Committee white paper (J Am Jim Radiol 2017): For any incidental adrenal lesion greater than or equal to 1 cm but less than or equal to 4 cm classified in this report as benign, likely benign, or containing fat (including classification as an adenoma or myelolipoma), no follow-up imaging is recommended per consensus recommendations based on imaging criteria. Further lab evaluation could be pursued if warranted based on clinical findings. 2. Consistent with the [place] [employer]'s Incidental Findings Committee white paper (J Am Jim Radiol 2018): Any incidental renal lesion less than 1 cm or classified as too small to characterize, or any incidental cystic renal lesion characterized as simple-appearing, is likely benign. No follow-up imaging is recommended for these lesions per consensus recommendations based on imaging criteria.
[2021-11-07] MEDS: potassium chloride premix 100 ML 50 MEQ IV (03:45)
[2021-11-07] MEDS: haloperidol inj 5 mg/mL INJ 1 mL 3 MG IVP (05:06)
[2021-11-07 06:32] LABS: Troponin 5 2HR 63.36 ng/L (0-10)
[2021-11-07 06:56] LABS: Troponin 5 2HR Delta 5.36 ABS# (0-10)
--- NOTE | 2021-11-07 06:56 | ECG_ITS ---
[facility] Test Date: 2021-11-07 Pat Name: Rosanne Jacob Department: Room: Gender: Female Derrick Hand: : 1940 Requested By: Maosod Catalan Order Number: [id number] Christine MD: Cj Tran M.D. Measurements Intervals [place] Rate: 102 P: [place]: QRS: 81 QRSD: 78 T: -32 QT: 356 QTc: 464 Interpretive Statements ATRIAL FIBRILLATION WITH RAPID VENTRICULAR RESPONSE ST DEVIATION AND MODERATE T-WAVE ABNORMALITY, CONSIDER INFERIOR ISCHEMIA [-0.1+ mV T WAVE IN II/aVF] Compared to ECG 02/10/2018 15:49:11 Possible ischemia now present Sinus rhythm no longer present First degree AV block no longer present T-wave abnormality still present Electronically Signed On 11-09-2021 18:19:01 CDT by Cj Tran M.D. [email or web address] medical centerKolo Technologiesselect medical [facility] [place].[employer]/store/OM/[id number]
--- NOTE | 2021-11-07 08:25 | P.HP_ITS ---
Providers/Chief Complaint Admitting Physician: Ara Jc MD Chief Complaint: WEAKNESS History of Present Illness Rosanne Jacob is a 81 year old female who presented to the emergency room with chief complaint of weakness, dizziness, loose stools, are mouth and everything she eats tasting like salt and general malaise. She has multiple comorbid medical conditions as described below. She has had similar presentations with similar complaints several times this year already. In June and in August she presented at [facility] in [facility]. She was originally from the [facility] and had doctors establish there which is the reason that her health care is usually in that area. She lives in [place]. She presented to that hospital in both June and July of this year. 1 time with a complaint of 30 pound or so weight loss and dizziness and weakness. At that time she was having a lot of dry heaving. She had extensive work-up and was seen by multiple specialist. She was ultimately found to have some esophageal dysmotility and esophagitis. She was treated with 12 weeks of PPI therapy. From history it sounds like she never really got significant relief. She was there again in August. At that time she was again having nausea vomiting and dizziness along with some abdominal discomfort. Additionally she complained of an itchy rash all over. She had an echocardiogram that stay that showed an ejection fraction of 60% with normal aortic valve. She was overall felt to have clinical failure to thrive. TSH was checked and was normal at 0.86. Work-up in the emergency room revealed anemia, hypokalemia and a creatinine of 2.8. Review of available information from outside records shows that patient's prior hemoglobin had been 10 in August of this year, BUN and creatinine 37/2.98. Patient's albumin was quite low. She received Haldol, Reglan, Zofran for nausea in the emergency room as well as some pain medicine with morphine. Potassium was also administered. Nevertheless she continued to be very weak and not able to do much. With her persistent GI symptoms in particular along with electrolyte abnormalities she is being admitted for further evaluation and treatment. Review of Systems Const: Reports: change in appetite, change in weight, fatigue, malaise and diaphoresis; Denies: fever(s) or chills Eyes: Denies: change in vision ENMT: Reports: dry mouth and other (Mouth tastes like salt); Denies: throat pain, uvular edema, enlarged tonsils, odynophagia or nasal congestion Card: Denies: chest pain, palpitations or edema Resp: Denies: dyspnea, productive cough, non-productive cough or change in phlegm color GI: Reports: abdominal pain, nausea, vomiting, heartburn, early satiety and diarrhea (Watery); Denies: constipation, hematochezia or melena : Denies: difficulty voiding Musc: Reports: back pain and extremity pain Skin/Breast: Reports: rash and pruritus (Back) Neuro: Reports: headache(s); Denies: numbness in extremities, weakness in extremities or difficulty walking Psych: Reports: anxiety; Denies: depression Onur/Lymph: Denies: easy bruising or easy bleeding Medications/Allergies Home Medications Medication Instructions Recorded Confirmed Last Taken Type cetirizine 10 mg tablet (Zyrtec) 10 mg PO DAILY PRN 30 Days #30 tab 12/18/19 11/07/21 Unknown Rx clopidogrel 75 mg tablet (Plavix) 75 mg PO DAILY #30 tab 08/28/20 11/07/21 Unknown Rx fenofibrate 160 mg tablet 160 mg PO DAILY #30 tab 08/28/20 11/07/21 Unknown Rx hydralazine 25 mg tablet 25 mg PO TID #90 tab 08/28/20 11/07/21 Unknown Rx hydrochlorothiazide 25 mg tablet 25 mg PO DAILY #30 tab 08/28/20 11/07/21 Unknown Rx magnesium oxide 400 mg PO BID #60 tab 08/28/20 11/07/21 Unknown Rx pantoprazole 40 mg tablet,delayed 40 mg PO DAILY #30 tab 08/28/20 11/07/21 Unknown Rx release rosuvastatin 40 mg tablet 40 mg PO DAILY #30 tab 08/28/20 11/07/21 Unknown Rx tolterodine 4 mg capsule,extended 4 mg PO Q24H #30 cap 08/28/20 11/07/21 Unknown Rx release 24 hr (Detrol LA) sulfamethoxazole 800 1 tab PO BID #20 tab 10/22/21 11/07/21 Unknown Rx mg-trimethoprim 160 mg tablet (Bactrim DS) ergocalciferol (vitamin D2) 1,250 1,250 mcg PO Q7D 11/07/21 11/07/21 Unknown History mcg (50,000 unit) capsule furosemide 20 mg tablet (Lasix) 20 mg PO DAILY 11/07/21 11/07/21 Unknown History gabapentin 100 mg capsule 100 mg PO TID 11/07/21 11/07/21 Unknown History isosorbide dinitrate 30 mg tablet 30 mg PO DAILY 11/07/21 11/07/21 Unknown History metoprolol tartrate 50 mg tablet 25 mg PO BID 11/07/21 11/07/21 Unknown History potassium chloride 20 mEq 40 meq PO DAILY 11/07/21 11/07/21 Unknown History tablet,extended release(part/cryst) Allergies Allergy/AdvReac Type Severity Reaction Status Date / Time tramadol [From Ultram] Allergy Unknown Verified 10/22/21 15:48 PFSH Acute PFSH: Medical History (Updated 11/07/21 @ 23:43 by aMry Laird MD) AAA (abdominal aortic aneurysm) notated in multiple records, not commented on for CT abd/pelvis at [facility] 11/07/2021 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, T1a, N0, M0 diagnosed via CT guided biopsy s/p radiation therapy ending early 2019 gets regular lung scans following another pulmonary nodule ASCVD (arteriosclerotic cardiovascular disease) Cancer of right lung Preceded abnormality in left lung, details unknown Chronic kidney disease (CKD) COPD (chronic obstructive pulmonary disease) Esophageal dysmotility 07/14 barium swallow, dysmotility with intermittent tertiary stripping waves ([place], [place]) Modified swallow study same date normal Essential (primary) hypertension GERD (gastroesophageal reflux disease) History of intracranial aneurysm History of staph septicemia Hyperlipidemia Irritable bowel syndrome with constipation Osteoarthritis Peripheral artery disease Vertebrobasilar insufficiency Surgical History (Updated 11/07/21 @ 16:40 by Mary Laird MD) History of abdominal surgery for sepsis related to R femoral artery stent History of aorto-femoral bypass Right History of cardiac catheterization 2016: mild diffuse disease circ, calcified LAD, moderate proximal RCA disease per outside records History of carotid angioplasty 06/2021 due to stenosis of previous left carotid subclavian bypass History of cataract surgery History of esophagogastroduodenoscopy (EGD) 06/2021 esophagitis (from outside records) History of thoracotomy (~2015) right vats with wedge resection History of total abdominal hysterectomy and bilateral salpingo-oophorectomy Hx of cholecystectomy Hx of peripheral artery bypass left carotid-subclavian artery bypass S/P insertion of iliac artery stent right Status post aneurysm repair (1998) intracranial Family History (Updated 11/07/21 @ 16:03 by Mary Laird MD) Mother Cancer Sister Cancer Other Heart disease Social History (Updated 11/07/21 @ 08:42 by Mary Laird MD) Smoking and tobacco status: current every day smoker cigarettes Packs smoked per day: 1 Second hand smoke exposure: No Alcohol intake: never Substance/Drug Use: never Adopted: No Caregiver/support person: No Lives independently: Yes Household members: none Housing: House Marital status: Number of children: 2 service: No Current occupational status: retired Pets and animals: No Current gender identity: Female Vitals/I&O/Wt Last Vital Signs Temp 97.7 F 11/07/21 07:47 Pulse 91 11/07/21 07:47 Resp 18 11/07/21 07:47 BP 137/63 11/07/21 07:47 Pulse Ox 97 11/07/21 07:47 11/06/21 11/07/21 11/07/21 22:59 06:59 14:59 Intake Total 21.667 / 21.667 Balance 21.667 / 21.667 Weight last 48 hrs Weight 63.503 kg Physical Exam Narrative: Constitutional: Awake and alert, chronically and acutely ill-appearing HEENT: Bitemporal wasting, eyes are sunken, extraocular movements intact Neck: Supple Respiratory: Coarse breath sounds that improve after cough Cardiovascular: Irregular Abdomen: Soft, not acutely tender, no rebound or guarding, positive bowel sounds : Normal external Extremities: Pitting edema Skin: Thickened skin with chronic changes Neuro: Speech clear, face symmetric, handgrip is equal though she is generally weak with muscle loss noted Psych: Flat affect Data : 11/07/21 02:05 11/07/21 02:05 Other Labs: Radiology Impressions Chest X-Ray 11/07/21 00:56 IMPRESSION: Unchanged hyperinflation of lungs with upper lung zone emphysema. Unchanged bilateral upper lung zone parenchymal scarring. Unchanged right mid lung zone coarse parenchymal band with some associated calcified granulomas. No new airspace opacities. Abdomen/Pelvis CT 11/07/21 03:41 IMPRESSION: 1. Mildly distended fluid-filled loops of small bowel in the abdomen. Poor distension of the colon. Mild ascending colonic, transverse colonic and descending colonic wall prominence is seen. This may be related to poor distension. Some fluid seen in the rectum. These findings can be seen with enteritis. Recommend correlation with clinical findings. 2. Status post prior cholecystectomy with dilated extrahepatic/common bile duct. No calcified stones. 3. Left adrenal indeterminate character 0.9 x 1 cm lesion, as noted above. 4. Degenerative changes of the lumbar spine and pelvis, as noted above. 5. Severe atherosclerotic vascular calcifications. COMMENTS: 1. Consistent with the [employer]'s Incidental Findings Committee white paper (J Am Jim Radiol 2017): For any incidental adrenal lesion greater than or equal to 1 cm but less than or equal to 4 cm classified in this report as benign, likely benign, or containing fat (including classification as an adenoma or myelolipoma), no follow-up imaging is recommended per consensus recommendations based on imaging criteria. Further lab evaluation could be pursued if warranted based on clinical findings. 2. Consistent with the [employer]'s Incidental Findings Committee white paper (J Am Jim Radiol 2018): Any incidental renal lesion less than 1 cm or classified as too small to characterize, or any incidental cystic renal lesion characterized as simple-appearing, is likely benign. No follow-up imaging is recommended for these lesions per consensus recommendations based on imaging criteria. Laboratory Results WBC 9.1 10^3/uL (4.0-10.0) 11/07/21 02:05 RBC 2.64 10^6/uL (4.1-5.3) L 11/07/21 02:05 Hgb 8.8 g/dL (11.5-15.3) L 11/07/21 02:05 Hct 25.3 % (37.0-47.0) L 11/07/21 02:05 MCV 95.8 fl (81-99) 11/07/21 02:05 MCH 33.3 pg (28.0-34.0) 11/07/21 02:05 MCHC 34.8 g/dL (30.0-36.0) 11/07/21 02:05 RDW 13.8 % (12.1-15.1) 11/07/21 02:05 Plt Count 251 10^3/cmm (130-400) 11/07/21 02:05 MPV 10.6 fL (7.4-10.4) H 11/07/21 02:05 Neut % (Auto) 60.3 % 11/07/21 02:05 Lymph % (Auto) 12.6 % 11/07/21 02:05 [place]ard % (Auto) 8.3 % 11/07/21 02:05 Eos % (Auto) 17.6 % 11/07/21 02:05 Baso % (Auto) 0.7 % 11/07/21 02:05 Neut # (Auto) 5.51 10^3/uL (1.8-7.7) 11/07/21 02:05 Lymph # (Auto) 1.2 10^3/uL (0.8-4.8) 11/07/21 02:05 Menard # (Auto) 0.8 10^3/uL (0.2-0.9) 11/07/21 02:05 Eos # (Auto) 1.6 10^3/uL (0.0-0.8) H 11/07/21 02:05 Baso # (Auto) 0.1 10^3/uL (0.0-0.1) 11/07/21 02:05 Nucleated RBC % (auto) 0 % 11/07/21 02:05 Nucleated RBCs # 0.0 /100WBC 11/07/21 02:05 Sodium 144 mmol/L (136-145) 11/07/21 02:05 Potassium 2.9 mmol/L (3.5-5.1) L 11/07/21 02:05 Chloride 111 mmol/L (98-107) H 11/07/21 02:05 Carbon Dioxide 19 mmol/L (22-29) L 11/07/21 02:05 Anion Gap 16.9 (5-19) 11/07/21 02:05 BUN 21 mg/dL (8-23) 11/07/21 02:05 Creatinine 2.8 mg/dL (0.5-0.9) H 11/07/21 02:05 GFR Calculation Not Reportable 11/07/21 02:05 Glucose 77 mg/dL (65-115) 11/07/21 02:05 Calculated Osmolality 300 mOsm/kg (285-295) H 11/07/21 02:05 Calcium 6.4 mg/dL (8.5-10.5) L 11/07/21 02:05 Total Bilirubin 0.4 mg/dL (0.15-1.2) 11/07/21 02:05 AST 24 U/L (0-32) 11/07/21 02:05 ALT 15 U/L (0-33) 11/07/21 02:05 Alkaline Phosphatase 145 IU/L (35-105) H 11/07/21 02:05 Troponin T Baseline 58 ng/L (0-10) H 11/07/21 02:05 Troponin T 120 Minute 63.36 ng/L (0-10) H 11/07/21 05:55 Delta Troponin T 5.36 ABS# (0-10) 11/07/21 05:55 NT-Pro-B Natriuret Pep 3930 pg/mL (0-450) H 11/07/21 02:05 Total Protein 6.3 g/dL (6.6-8.7) L 11/07/21 02:05 Albumin 2.0 g/dL (3.5-5.2) L 11/07/21 02:05 Globulin 4.3 g/dL (1.3-4.6) 11/07/21 02:05 Lipase 16 U/L (13-60) 11/07/21 02:05 Urine Color Yellow (Yellow) 11/07/21 01:41 Urine Appearance Clear (CLEAR) 11/07/21 01:41 Urine pH 5 (5-7) 11/07/21 01:41 Ur Specific [place] 1.020 (1.005-1.030) 11/07/21 01:41 Urine Protein Neg (Negative) 11/07/21 01:41 Urine Glucose (UA) Norm (Normal) 11/07/21 01:41 Urine Ketones Negative (Negative) 11/07/21 01:41 Urine Blood Neg (Negative) 11/07/21 01:41 Urine Nitrate Negative (Negative) 11/07/21 01:41 Urine Bilirubin 1+ (Negative) H 11/07/21 01:41 Urine Urobilinogen 1 mg/dL (Negative) H 11/07/21 01:41 Ur Leukocyte Esterase Negative (Negative) 11/07/21 01:41 Micro: Microbiology 11/07/21 02:05 Blood Culture - Preliminary Blood SPECIMEN COLLECTED A&P Assessment and plan (1) Acute dehydration: Status: Acute (2) Acute hypokalemia: Status: Acute (3) Diarrhea: Status: Acute (4) Anemia: Status: Acute (5) Esophageal dysmotility: Status: Acute (6) Adult failure to thrive: Status: Acute (7) COPD (chronic obstructive pulmonary disease): Status: Chronic (8) Chronic kidney disease (CKD): Status: Chronic (9) ASCVD (arteriosclerotic cardiovascular disease): Patient admission IV fluids Replace potassium Check magnesium and phosphorus Check TSH Check stool studies Hold multiple medications including current diuretic therapy, hydralazine, fenofibrate, cetirizine, vitamin D2, isosorbide, Crestor, Detrol Continue beta-blockade and isosorbide, Plavix Serial cardiac enzymes Continue home gabapentin Hold Bactrim and see if we can clarify with anyone else why she is on it Monitor response to above PPI Sanders diet Follow-up pending cultures PT and OT evaluation Supportive care otherwise Given that patient has had extensive work-up for similar symptoms several times over the last couple of months, I discussed with her what her primary goal of care for this stay is. She would like in her words to be able to eat without having stool come out her backside short time later. Anticipate discharge home versus home with her daughter, along with follow-up to primary care provider Some of her symptoms could be a combination of medications but she also has significant vasculopathy at play as well. She is aware of limitations of vascular evaluation for her current presentation. CODE STATUS discussed and as per her daughter's wishes from their prior conversation, she does want to be full code Status: Chronic (10) Essential (primary) hypertension: Status: Chronic Attestations Medical Necessity Statement*: Anticipate a stay less than 2 midnights and the patient presenting with weakness, dizziness, malaise and other findings as described above. Coding Level of Care Code Acute [place] [facility] for [place] [facility] Diagnoses Anemia D64.9 Acute dehydration E86.0 Acute hypokalemia E87.6 Esophageal dysmotility K22.4 Adult failure to thrive R62.7 COPD (chronic obstructive pulmonary disease) J44.9 Chronic kidney disease (CKD) N18.9 Diarrhea R19.7 ASCVD (arteriosclerotic cardiovascular disease) I25.10 Essential (primary) hypertension I10
[2021-11-07] MEDS: sodium chloride 0.9% 1,000 ML 100 ML IV (08:57)
[2021-11-07 11:08] LABS: Glucose Point of Care 77 mg/dL (70-110)
[2021-11-07] MEDS: heparin 5,000 unit/mL INJ 1 mL 5000 UNIT SUBCUT (20:50)
[2021-11-07] MEDS: gabapentin 100 mg Capsule PO (20:50)
--- NOTE | 2021-11-07 23:47 | PC.NURSE ---
patient still does not have iv access many attempts have been made. awaiting a qualified staff member to use ultra sound to gain access
[2021-11-08] VITALS: BP 111/68; PULSE 80; RESP 18; TEMP 36.6; O2SAT 98
[2021-11-08 04:00] VITALS: BP 106/60; PULSE 89; RESP 18; TEMP 36.9; O2SAT 97
--- NOTE | 2021-11-08 05:45 | PC.NURSE ---
patient is refusing to allow nurse to continue to try to gain iv access. patient states she is leaving today and didn't want to keep trying
[2021-11-08 06:00] VITALS: PULSE 93
[2021-11-08 07:22] VITALS: BP 130/67; PULSE 95; RESP 18; O2SAT 100
[2021-11-08] MEDS: isosorbide dinitrate 20 mg Tablet PO (08:50)
[2021-11-08] MEDS: clopidogrel 75 mg Tablet PO (08:50)
[2021-11-08] MEDS: metoprolol tartrate 50 mg Tablet 25 MG PO (08:51)
[2021-11-08] MEDS: potassium chloride ER 20 mEq Tablet 40 MEQ PO (08:51)
[2021-11-08] MEDS: gabapentin 100 mg Capsule PO (08:52)
--- NOTE | 2021-11-08 12:35 | P.DS_ITS ---
Discharge Providers Date of Admission: 11/07/21 05:45 Date of Discharge: November 08, 2021 Attending Provider at Admission: Ara Jc MD Attending Provider at Discharge: Mary Laird MD Diagnoses at Discharge Discharge Diagnosis (1) Acute dehydration: Details from hospital stay: with nausea and vomiting Status: Resolved (2) Acute hypokalemia: Status: Acute (3) Diarrhea: Details from hospital stay: likely medication related Status: Resolved Qualifiers: Diarrhea type: functional diarrhea Qualified Code(s): K59.1 - Functional diarrhea (4) Weakness generalized: Status: Acute (5) Anemia: Status: Acute Qualifiers: Anemia type: due to chronic kidney disease Chronic kidney disease stage: stage 3 (moderate) Chronic kidney disease stage 3 subtype: stage 3b (GFR 30-44) Qualified Code(s): N18.32 - Chronic kidney disease, stage 3b; D63.1 - Anemia in chronic kidney disease (6) Adult failure to thrive: Status: Acute (7) Esophageal dysmotility: Status: Chronic Permanent problem details: 07/14 barium swallow, dysmotility with intermittent tertiary stripping waves ([place], [place]) Modified swallow study same date normal (8) COPD (chronic obstructive pulmonary disease): Status: Chronic (9) Chronic kidney disease (CKD): Status: Chronic (10) ASCVD (arteriosclerotic cardiovascular disease): Status: Chronic (11) Essential (primary) hypertension: Status: Chronic Reason for Visit Reason for Visit: WEAKNESS Discharge Data Studies Completed and Pending Completed Studies During Hospitalization Category Date Time Status CT abdomen pelvis wo con [id number] Urgent Cat Scan 11/07/21 03:41 Completed XR chest 1V portable [id number] Stat Exams 11/07/21 00:56 Completed Pending at discharge Category Date Time Status BMP [Basic Metabolic Panel] Routine Lab 11/07/21 18:21 Ordered Basic Metabolic Panel AM LABS Lab 11/08/21 04:00 Ordered Blood Culture Stat Lab 11/07/21 00:39 Results Clostridioides Difficile PCR Routine Lab 11/07/21 18:51 Ordered Complete Blood Count w/Auto AM LABS Lab 11/08/21 04:00 Ordered Enteric Bacterial Panel by PCR Routine Lab 11/07/21 18:51 Ordered Enteric Parasite Panel by PCR Routine Lab 11/07/21 18:51 Ordered Immunochemical Fecal OCB Routine Lab 11/07/21 18:51 Ordered Lactic Sepsis W/Reflex Routine Lab 11/07/21 18:21 Ordered Lactoferrin Routine Lab 11/07/21 18:51 Ordered Magnesium AM LABS Lab 11/08/21 04:00 Ordered Magnesium Routine Lab 11/07/21 18:21 Ordered PT [Prothrombin Time INR] Routine Lab 11/07/21 23:48 Ordered Phosphorus AM LABS Lab 11/08/21 04:00 Ordered Phosphorus Routine Lab 11/07/21 18:21 Ordered TSH [Thyroid Stimulating Hormone] Routine Lab 11/07/21 18:21 Ordered Uric Acid Routine Lab 11/07/21 18:21 Ordered Radiology Impressions Chest X-Ray 11/07/21 00:56 IMPRESSION: Unchanged hyperinflation of lungs with upper lung zone emphysema. Unchanged bilateral upper lung zone parenchymal scarring. Unchanged right mid lung zone coarse parenchymal band with some associated calcified granulomas. No new airspace opacities. Abdomen/Pelvis CT 11/07/21 03:41 IMPRESSION: 1. Mildly distended fluid-filled loops of small bowel in the abdomen. Poor distension of the colon. Mild ascending colonic, transverse colonic and descending colonic wall prominence is seen. This may be related to poor distension. Some fluid seen in the rectum. These findings can be seen with enteritis. Recommend correlation with clinical findings. 2. Status post prior cholecystectomy with dilated extrahepatic/common bile duct. No calcified stones. 3. Left adrenal indeterminate character 0.9 x 1 cm lesion, as noted above. 4. Degenerative changes of the lumbar spine and pelvis, as noted above. 5. Severe atherosclerotic vascular calcifications. COMMENTS: 1. Consistent with the [employer]'s Incidental Findings Committee white paper (J Am Jim Radiol 2017): For any incidental adrenal lesion greater than or equal to 1 cm but less than or equal to 4 cm classified in this report as benign, likely benign, or containing fat (including classification as an adenoma or myelolipoma), no follow-up imaging is recommended per consensus recommendations based on imaging criteria. Further lab evaluation could be pursued if warranted based on clinical findings. 2. Consistent with the [employer]'s Incidental Findings Committee white paper (J Am Jim Radiol 2018): Any incidental renal lesion less than 1 cm or classified as too small to characterize, or any incidental cystic renal lesion characterized as simple-appearing, is likely benign. No follow-up imaging is recommended for these lesions per consensus recommendations based on imaging criteria. Laboratory Results WBC 9.1 10^3/uL (4.0-10.0) 11/07/21 02:05 RBC 2.64 10^6/uL (4.1-5.3) L 11/07/21 02:05 Hgb 8.8 g/dL (11.5-15.3) L 11/07/21 02:05 Hct 25.3 % (37.0-47.0) L 11/07/21 02:05 MCV 95.8 fl (81-99) 11/07/21 02:05 MCH 33.3 pg (28.0-34.0) 11/07/21 02:05 MCHC 34.8 g/dL (30.0-36.0) 11/07/21 02:05 RDW 13.8 % (12.1-15.1) 11/07/21 02:05 Plt Count 251 10^3/cmm (130-400) 11/07/21 02:05 MPV 10.6 fL (7.4-10.4) H 11/07/21 02:05 Neut % (Auto) 60.3 % 11/07/21 02:05 Lymph % (Auto) 12.6 % 11/07/21 02:05 [place] % (Auto) 8.3 % 11/07/21 02:05 Eos % (Auto) 17.6 % 11/07/21 02:05 Baso % (Auto) 0.7 % 11/07/21 02:05 Neut # (Auto) 5.51 10^3/uL (1.8-7.7) 11/07/21 02:05 Lymph # (Auto) 1.2 10^3/uL (0.8-4.8) 11/07/21 02:05 [place] # (Auto) 0.8 10^3/uL (0.2-0.9) 11/07/21 02:05 Eos # (Auto) 1.6 10^3/uL (0.0-0.8) H 11/07/21 02:05 Baso # (Auto) 0.1 10^3/uL (0.0-0.1) 11/07/21 02:05 Nucleated RBC % (auto) 0 % 11/07/21 02:05 Nucleated RBCs # 0.0 /100WBC 11/07/21 02:05 Sodium 144 mmol/L (136-145) 11/07/21 02:05 Potassium 2.9 mmol/L (3.5-5.1) L 11/07/21 02:05 Chloride 111 mmol/L (98-107) H 11/07/21 02:05 Carbon Dioxide 19 mmol/L (22-29) L 11/07/21 02:05 Anion Gap 16.9 (5-19) 11/07/21 02:05 BUN 21 mg/dL (8-23) 11/07/21 02:05 Creatinine 2.8 mg/dL (0.5-0.9) H 11/07/21 02:05 GFR Calculation Not Reportable 11/07/21 02:05 Glucose 77 mg/dL (65-115) 11/07/21 02:05 POC Glucose 77 mg/dL (70-110) 11/07/21 10:59 Calculated Osmolality 300 mOsm/kg (285-295) H 11/07/21 02:05 Calcium 6.4 mg/dL (8.5-10.5) L 11/07/21 02:05 Total Bilirubin 0.4 mg/dL (0.15-1.2) 11/07/21 02:05 AST 24 U/L (0-32) 11/07/21 02:05 ALT 15 U/L (0-33) 11/07/21 02:05 Alkaline Phosphatase 145 IU/L (35-105) H 11/07/21 02:05 Troponin T Baseline 58 ng/L (0-10) H 11/07/21 02:05 Troponin T 120 Minute 63.36 ng/L (0-10) H 11/07/21 05:55 Delta Troponin T 5.36 ABS# (0-10) 11/07/21 05:55 NT-Pro-B Natriuret Pep 3930 pg/mL (0-450) H 11/07/21 02:05 Total Protein 6.3 g/dL (6.6-8.7) L 11/07/21 02:05 Albumin 2.0 g/dL (3.5-5.2) L 11/07/21 02:05 Globulin 4.3 g/dL (1.3-4.6) 11/07/21 02:05 Lipase 16 U/L (13-60) 11/07/21 02:05 Urine Color Yellow (Yellow) 11/07/21 01:41 Urine Appearance Clear (CLEAR) 11/07/21 01:41 Urine pH 5 (5-7) 11/07/21 01:41 Ur Specific [place] 1.020 (1.005-1.030) 11/07/21 01:41 Urine Protein Neg (Negative) 11/07/21 01:41 Urine Glucose (UA) Norm (Normal) 11/07/21 01:41 Urine Ketones Negative (Negative) 11/07/21 01:41 Urine Blood Neg (Negative) 11/07/21 01:41 Urine Nitrate Negative (Negative) 11/07/21 01:41 Urine Bilirubin 1+ (Negative) H 11/07/21 01:41 Urine Urobilinogen 1 mg/dL (Negative) H 11/07/21 01:41 Ur Leukocyte Esterase Negative (Negative) 11/07/21 01:41 Vitals Last Vital Signs Temp 98.5 F 11/08/21 04:00 Pulse 95 11/08/21 07:22 Resp 18 11/08/21 07:22 BP 130/67 11/08/21 07:22 Pulse Ox 100 11/08/21 07:22 Discharge Plan Discharge Patient Disposition: Home Health Service Condition: Stable Prescriptions: Continued clopidogrel [Plavix] 75 mg tablet 75 mg PO DAILY Qty: 30 2RF pantoprazole 40 mg tablet,delayed release (DR/EC) 40 mg PO DAILY Qty: 30 2RF potassium chloride 20 mEq tablet,ER particles/crystals 20 meq PO BID 0RF Lasix 20 mg Tablet 20 mg PO DAILY 0RF gabapentin 100 mg Capsule 100 mg PO TID 0RF ergocalciferol (vitamin D2) 1,250 mcg (50,000 unit) capsule 1,250 mcg PO Q7D 0RF Rx Instructions: On Saturdays isosorbide dinitrate 30 mg tablet 30 mg PO DAILY 0RF Rx Instructions: allow nitrate-free interval of 12-14 hrs per 24-hr period Vitamin B-1 100 mg Tablet 100 mg PO DAILY 0RF hydroxyzine HCl 25 mg tablet 25 mg PO TID PRN (Reason: Itching) 0RF Crestor 10 mg Tablet 10 mg PO DAILY 0RF metoprolol tartrate 25 mg tablet 25 mg PO BID 0RF Held sulfamethoxazole-trimethoprim [Bactrim DS] 800-160 mg tablet 1 tab PO BID Qty: 20 0RF Hold Instructions: until able to discuss with prescribing provider Discharge Orders: Discharge Order (Routine); Ordered 11/08/21 Ordered By: Mary Laird Other Ambulatory Orders: Basic Metabolic Panel (Routine) Timeframe: 20211109 Location: Determined by Patient Ordered By: Mary Laird Complete Blood Count w/Man Dif (Routine) Timeframe: 20211109 Location: Determined by Patient Ordered By: Mary Laird Magnesium (Routine) Timeframe: 20211109 Location: Determined by Patient Ordered By: Mary Laird Total Iron Binding Capacity (Routine) Timeframe: 20211109 Location: Determined by Patient Ordered By: Mary Laird Thyroid Stimulating Hormone (Routine) Timeframe: 20211109 Facility: [facility] - Location: Lab - Main Lab Ordered By: Mary Laird Referrals: [facility] [Outside] Discharge Diet: Advance as tolerated Discharge Activity: Increase activity as tolerated Patient Instructions: Opioid Safety Activity Restrictions/Additional Instructions: You presented with weakness, nausea and vomiting, dizziness, general malaise. Also reported bad taste in your mouth. Work-up in the emergency room revealed some worsening of your kidney function (Cr 2.8) and low potassium level (2.9). Clinically you appear dehydrated. You received 3 doses metoclopramide (Reglan) IV, 2 doses ondansetron (Zofran) IV, one dose haloperidol IV (for persistent GI symptoms) and one dose of morphine IV for pain. You were given ~1.5 liters of IVF, IV and oral potassium. You declined additional attempts to draw blood for repeat blood work or IV placement. You experienced some diarrhea after receiving metoclopramide, but this is not an unexpected side effect of the medication. Overall you were feeling better and were eager to get home. Concern is that recently prescribed Bactrim for MRSA found in leg wound had impact on kidney function leading to your acute symptoms. It is not unusual for us to see this effect in some patients who have chronic kidney disease. Recommend holding the rest of this medication until able to discuss with prescribing provider who is managing your leg wounds. Your leg wraps were not removed during the stay. Alternative antibiotics, including topical options could be considered. Your white blood count was normal and you had no fevers during this hospital stay. You were noted to be more anemic than our prior blood work has shown with your hemoglobin of 8.8 and a hematocrit of 25.3. No gross blood loss was noted and could be related to renal function. Recommend further monitoring and work-up as indicated by your primary care provider. Blood pressure was 106-136/60-75 in 15 hours prior to discharge. Heart rate 80s-90s. Home medication list was reviewed and updated with your daughter on phone. The medication list here is the most current. Please take this paperwork with you at follow up with your doctor. Also use this list to compare with what you are taking at home. A brief review of the available records I can see indicate that different doctors are prescribing different lists of medications potentially without realizing changes have been made by other providers. Keep track of your blood pressure and take log with you. Lasix was held during this hospital stay but can be resumed day after discharge. Keep appointment to get blood drawn 11/09. I have added orders for labs with this paperwork. Home health for PT and OT, in addition to longterm already in place, has been ordered. Discharge Attestations Time Spent in Discharge Care*: greater than 30 min Specific Discharge Activities: educating patient, educating and/or supporting family/caregiver, discussing with transplant case manager/social workers/dc planners, documenting/other paperwork and evaluating patient/reviewing data Quality Metrics Clinical Quality Measures [ No reported AMI, CVA or VTE this stay] Coding Level of Care Code Acute Chg FW DC note Diagnoses Acute dehydration E86.0 Acute hypokalemia E87.6 Diarrhea K59.1 Diarrhea type: functional diarrhea Anemia N18.32; D63.1 Anemia type: due to chronic kidney disease Chronic kidney disease stage: stage 3 (moderate) Chronic kidney disease stage 3 subtype: stage 3b (GFR 30-44) Esophageal dysmotility K22.4 Adult failure to thrive R62.7 COPD (chronic obstructive pulmonary disease) J44.9 Chronic kidney disease (CKD) N18.9 ASCVD (arteriosclerotic cardiovascular disease) I25.10 Essential (primary) hypertension I10 Weakness generalized R53.1
== END 2021-11-08 13:16 | disposition home health service (06) | DRG 684 ==
LOC: ER 04:28 → MEDSURG 07:45
PROVIDERS: Hospitalist; Admitting Provider Student in an Organized Health Care Education/Training Program; Emergency Provider Physician Assistant; Visit Provider Student in an Organized Health Care Education/Training Program
DX: N17.9 Acute kidney failure, unspecified (principal); E87.6 Hypokalemia; Z85.118 Personal history of other malignant neoplasm of bronchus and lung; I12.9 Hypertensive chronic kidney disease with stage 1 through stage 4 chronic kidney disease, or unspecified chronic kidney disease; N18.9 Chronic kidney disease, unspecified; J44.9 Chronic obstructive pulmonary disease, unspecified; Z92.3 Personal history of irradiation; I25.10 Atherosclerotic heart disease of native coronary artery without angina pectoris; K22.4 Dyskinesia of esophagus; E78.5 Hyperlipidemia, unspecified; I73.9 Peripheral vascular disease, unspecified; Z95.820 Peripheral vascular angioplasty status with implants and grafts; F17.210 Nicotine dependence, cigarettes, uncomplicated; E86.0 Dehydration; K52.9 Noninfective gastroenteritis and colitis, unspecified; Z79.02 Long term (current) use of antithrombotics/antiplatelets; D63.1 Anemia in chronic kidney disease
CPT/HCPCS: 36415; 36416; 71045; 74176; 80053; 81003; 82962; 83690; 83880; 84484; 85025; 87040; 87493; 93005; 96365; 96366; 96372; 96375; 97165; 99285; G0378; J1630; J1644; J2270; J2405; J2765; J3480; J7030